=== PATIENT | female | born 1935 | race Caucasian/White ===

== ENCOUNTER 2021-10-14 10:52 | Emergency (ER) | payer MEDICARE, OTHER ==
[~2021-10-14] VITALS: Ht 154.9 cm; Wt 72.6 kg
[2021-10-14] MEDS ORDERED: CEFDINIR300 MG PO (13:21)
== END 2021-10-14 13:34 | disposition home or self-care (01) ==
LOC: FSED 11:18
DX: R05.9 Cough, unspecified (principal); J20.9 Acute bronchitis, unspecified; E11.9 Type 2 diabetes mellitus without complications; E78.5 Hyperlipidemia, unspecified; K21.9 Gastro-esophageal reflux disease without esophagitis; Z20.822 Contact with and (suspected) exposure to COVID-19
CPT/HCPCS: 71046; 99284; U0002